=== PATIENT | male | born 1990 | race Caucasian/White ===

== ENCOUNTER 2017-05-05 23:54 | Emergency (ER) | payer OTHER ==
[~2017-05-05] VITALS: Ht 172.7 cm; Wt 75.9 kg
[2017-05-06] VITALS: Ht 172.7 cm; Wt 75.9 kg
[2017-05-06 00:20] VITALS: O2SAT 99
--- NOTE | 2017-05-06 00:27 | EMERGENCY ROOM VISIT NOTE ---
History Report prepared by Hayden: Melanie Ingram Under the Supervision of: Dr. Alcides Monson D.O. First contact with patient: 00:05 Chief Complaint: CARDIAC ASSESSMENT Stated Complaint: LEFT SIDE NUMB,NAUSEA,DIZZY History of Present Illness The patient is a 27 year old male who presents to the Emergency Room with complaints of persistent left hand and leg numbness starting this morning. The numbness worsens when he lies down. His numbness improved when he was walking around. He has never experienced these symptoms before. He reports some chest pain. He denies any headache or neck pain. He also checked his blood pressure several times today and found that it was fluctuating from high to low. His lowest measurement was 91/41 and the highest was 165/124. He is unsure if his blood pressure machine is measuring accurately. He notes that he has had trouble with his blood pressure fluctuating 10 years ago when he was sick with a virus. He denies being on any medications. He denies any history of surgeries. He has a history of smoking, but has cut down. He did smoke some cigarettes yesterday. He also admits to alcohol use yesterday. Source of History: patient Onset: this morning Position: hand (left), leg (left) Quality: numbness Timing: other (persistent) Modifying Factors (Worsening): other (lying down) Modifying Factors (Relieving): other (walking) Associated Symptoms: + chest pain, No headache, No neck pain Note: Pt reports blood pressure changes. Review of Systems See HPI for pertinent positives & negatives. A total of 10 systems reviewed and were otherwise negative. Past Medical & Surgical Medical Problems: (1) No Known Active Medical Problems Family History No pertinent family history stated. Social History Smoking Status: Light Tobacco Smoker Marital Status: single Occupation Status: [employer] student Current/Historical Medications No Active Prescriptions or Reported Meds Allergies Coded Allergies: No Known Allergies (Unverified , 05/06/17) Physical Exam Vital Signs Date Time Temp Pulse Resp B/P (MAP) Pulse Ox O2 Delivery O2 Flow Rate FiO2 05/06/17 04:31 37.0 56 16 125/58 98 05/06/17 04:30 68 16 114/71 96 Room Air 05/06/17 03:16 56 16 125/58 98 Room Air 05/06/17 02:04 75 18 113/57 96 Room Air 05/06/17 00:21 85 05/06/17 00:20 97 Room Air 05/06/17 00:20 99 Room Air 05/06/17 00:00 37.0 79 18 137/81 100 Room Air Physical Exam GENERAL: Patient is awake, alert, and in no acute distress. Patient is resting comfortably and showing no signs of anxiety EYES: The conjunctivae are clear. The pupils are round and reactive. EARS, NOSE, MOUTH AND THROAT: The nose is without any evidence of any deformity. Mucous membranes are moist tongue is midline NECK: The neck is nontender and supple. RESPIRATORY: Normal respiratory effort is noted there is no evidence of wheezing rhonchi or rales CARDIOVASCULAR: Regular rate and rhythm noted there no murmurs rubs or gallops normal S1 normal S2 GASTROINTESTINAL: The abdomen is soft. Bowel sounds are present in all quadrants. Abdomen is nontender MUSCULOSKELETAL/EXTREMITIES: There is no evidence of gross deformity full range of motion is noted in the hips and shoulders SKIN: There is no obvious evidence of any rash. There are no petechiae, pallor or cyanosis noted. NEUROLOGIC: Patient is awake alert and oriented x3 strength is symmetric patellar reflexes are 2+ bilaterally Medical Decision & Procedures ER Provider Diagnostic Interpretation: X-ray results as stated below per interpretation by me. Chest X-ray: Heart size normal, no definite infiltrate, no acute disease CT the head was obtained in the emergency department. The report was reviewed. Preliminary Findings Only See Final Report For Complete Findings CT HEAD: No acute intracranial hemorrhage, cortical infarct, mass, midline shift or extra -axial fluid collection Incidentals: Sinuses are clear. Calvarium is intact. No soft tissue abnormality Radiologist: Lior Mckeon M.D. Study ready at 00:39 and initial results transmitted at 00:55 MRI the brain was obtained in the emergency department. The report was reviewed. Preliminary Findings Only See Final Report For Complete Findings MRI HEAD : Comparison: CT head 05/06/2017, 12:38 AM No evidence of acute infarction or mass. Single focus of subcortical white matter T2/FLAIR hyperintensity right superior frontal gyrus (image 8, series 8). This is nonspecific and commonly incidental finding. Demyelinating disease considered unlikely given single focus which does not account for patient's symptoms. Otherwise, unremarkable examination. Radiologist: Luis A Germain MD Study ready at 03:17 and initial results transmitted at 04:16 Laboratory Results 05/06/17 00:10 Red Blood Count 5.42, Mean Corpuscular Volume 83.2, Mean Corpuscular Hemoglobin 28.8, Mean Corpuscular Hemoglobin Concent 34.6, Mean Platelet Volume 9.5, Neutrophils (%) (Auto) 49.0, Lymphocytes (%) (Auto) 40.3, Monocytes (%) (Auto) 9.7, Eosinophils (%) (Auto) 0.6, Basophils (%) (Auto) 0.2, Neutrophils # (Auto) 4.06, Lymphocytes # (Auto) 3.35, Monocytes # (Auto) 0.81, Eosinophils # (Auto) 0.05, Basophils # (Auto) 0.02 05/06/17 00:10 Test 05/06/17 00:10 05/06/17 01:20 White Blood Count 8.31 K/uL (4.8-10.8) Red Blood Count 5.42 M/uL (4.7-6.1) Hemoglobin 15.6 g/dL (14.0-18.0) Hematocrit 45.1 % (42-52) Mean Corpuscular Volume 83.2 fL (80-100) Mean Corpuscular Hemoglobin 28.8 pg (25-34) Mean Corpuscular Hemoglobin Concent 34.6 g/dl (32-36) Platelet Count 247 K/uL (130-400) Mean Platelet Volume 9.5 fL (7.4-10.4) Neutrophils (%) (Auto) 49.0 % Lymphocytes (%) (Auto) 40.3 % Monocytes (%) (Auto) 9.7 % Eosinophils (%) (Auto) 0.6 % Basophils (%) (Auto) 0.2 % Neutrophils # (Auto) 4.06 K/uL (1.4-6.5) Lymphocytes # (Auto) 3.35 K/uL (1.2-3.4) Monocytes # (Auto) 0.81 K/uL (0.11-0.59) Eosinophils # (Auto) 0.05 K/uL (0-0.5) Basophils # (Auto) 0.02 K/uL (0-0.2) RDW Standard Deviation 36.4 fL (36.4-46.3) RDW Coefficient of Variation 12.1 % (11.5-14.5) Immature Granulocyte % (Auto) 0.2 % Immature Granulocyte # (Auto) 0.02 K/uL (0.00-0.02) Prothrombin Time 11.4 SECONDS (9.0-12.0) Prothromb Time International Ratio 1.1 (0.9-1.1) Activated Partial Thromboplast Time 27.8 SECONDS (21.0-31.0) Partial Thromboplastin Ratio 1.1 Anion Gap 8.0 mmol/L (3-11) Est Creatinine Clear Calc Drug Dose 97.6 ml/min Estimated GFR () 106.1 Estimated GFR (Non- 91.5 BUN/Creatinine Ratio 12.4 (10-20) Calcium Level 9.5 mg/dl (8.5-10.1) Magnesium Level 2.1 mg/dl (1.8-2.4) Total Bilirubin 1.0 mg/dl (0.2-1) Direct Bilirubin 0.2 mg/dl (0-0.2) Aspartate Amino Transf (AST/SGOT) 19 U/L (15-37) Alanine Aminotransferase (ALT/SGPT) 33 U/L (12-78) Alkaline Phosphatase 95 U/L (45-117) Total Creatine Kinase 212 U/L (39-308) Creatine Kinase MB 1.1 ng/ml (0.5-3.6) Creatine Kinase MB Ratio 0.5 (0-3.0) Troponin I < 0.015 ng/ml (0-0.045) Total Protein 7.8 gm/dl (6.4-8.2) Albumin 4.6 gm/dl (3.4-5.0) Thyroid Stimulating Hormone (TSH) 1.500 uIu/ml (0.300-4.500) Urine Color YELLOW Urine Appearance CLEAR (CLEAR) Urine pH 5.5 (4.5-7.5) Urine Specific [place] 1.008 (1.000-1.030) Urine Protein NEG (NEG) Urine Glucose (UA) NEG (NEG) Urine Ketones NEG (NEG) Urine Occult Blood NEG (NEG) Urine Nitrite NEG (NEG) Urine Bilirubin NEG (NEG) Urine Urobilinogen NEG (NEG) Urine Leukocyte Esterase NEG (NEG) Laboratory results per my review. ECG Indication: chest pain Rate (beats per minute): 69 Rhythm: normal sinus Findings: no ectopy, other (no acute ST segment abnormality) Comparison ECG Date: no prior available ED Course 0013: The patient was evaluated in room B2. A complete history and physical examination were performed. 0146: I reevaluated the patient. He will go for MRI. 0422: Upon reevaluation, the patient is resting comfortably. I discussed the results and treatment plan with him. He verbalized agreement of the treatment plan. He was discharged home. Medical Decision Prior records/ancillary studies reviewed and summarized above. Nursing notes reviewed. The patient's history was concerning for numbness. Differential diagnosis: Etiologies such as metabolic, infection, hypo/hyperglycemia, electrolyte abnormalities, cardiac sources, intracerebral event, toxicologic, neurologic, as well as others were entertained. Medication Reconciliation: I attest that I have personally reviewed the patient' s current medications list. Blood pressure screening: Patient was found to have normal blood pressure on screening and does not require follow-up. The patient is a 27-year-old male who presented to the emergency department for left-sided numbness. The patient had no focal neurologic deficit and his numbness did not and certainly fit a neurologic pattern. The patient's CT did not show any acute disease so an MRI was obtained. I discussed the patient's laboratory radiographic studies with him. He was encouraged to follow-up with [facility] as soon as possible for further evaluation and discuss the possibility that he may need a referral to a neurologist for further evaluation. The patient was encouraged to return to the emergency department immediately if symptoms change worsen or the need arises. Impression Primary Impression: Left sided numbness Scribe Attestation The scribe's documentation has been prepared under my direction and personally reviewed by me in its entirety. I confirm that the note above accurately reflects all work, treatment, procedures, and medical decision making performed by me. Departure Information Dispostion Home / Self-Care Prescriptions No Active Prescriptions or Reported Meds Referrals [facility] Forms IMPORTANT VISIT INFORMATION Patient Instructions ED Paraesthesias, My [facility] Additional Instructions Call your family to schedule a follow-up appointment. Return to the emergency department immediately if symptoms change worsen or the need arises. Discussed the possibility that you may need a referral to a neurologist to further evaluate the cause your symptoms.
[2017-05-06 00:38] LABS: BASO % 0.2 %; BASO ABS # 0.02 K/uL (0-0.2); COMPLETE YES; EOS % 0.6 %; HEMATOCRIT 45.1 % (42-52); IG% 0.2 %; LYMPH % 40.3 %; LYMPH ABS # 3.35 K/uL (1.2-3.4); MEAN CELL VOLUME 83.2 fL (80-100); MEAN CORPUSCULAR HEMOGLOBIN 28.8 pg (25-34); MEAN CORPUSCULAR HGB CONC 34.6 g/dl (32-36); MEAN PLATELET VOLUME 9.5 fL (7.4-10.4); MONO % 9.7 %; PLATELET COUNT 247 K/uL (130-400); RED BLOOD COUNT 5.42 M/uL (4.7-6.1); WHITE BLOOD COUNT 8.31 K/uL (4.8-10.8)
[2017-05-06 00:44] LABS: INR 1.1 (0.9-1.1); PARTIAL THROMBOPLASTIN RATIO 1.1; PROTHROMBIN TIME (PATIENT) 11.4 SECONDS (9.0-12.0)
[2017-05-06 00:51] LABS: ALT/SGPT 33 U/L (12-78); AST/SGOT 19 U/L (15-37); BLOOD UREA NITROGEN 14 mg/dl (7-18); BUN/CREATININE RATIO 12.4 (10-20); CALCIUM 9.5 mg/dl (8.5-10.1); CARBON DIOXIDE 31 mmol/L (21-32); CHLORIDE 102 mmol/L (98-107); GLUCOSE 99 mg/dl (70-99); MAGNESIUM 2.1 mg/dl (1.8-2.4); POTASSIUM 3.2 mmol/L (3.5-5.1); SODIUM 141 mmol/L (136-145)
[2017-05-06 01:02] LABS: ALKALINE PHOSPHATASE 95 U/L (45-117); CKMB/CK RATIO 0.5 (0-3.0)
[2017-05-06 02:09] LABS: URINE APPEARANCE CLEAR (CLEAR); URINE BILIRUBIN NEG (NEG); URINE COLOR YELLOW; URINE NITRITE NEG (NEG); URINE PH 5.5 (4.5-7.5); URINE SPECIFIC GRAVITY 1.008 (1.000-1.030); UROBILINOGEN NEG (NEG)
[2017-05-06 02:10] LABS: MANUAL MICROSCOPIC REQUIRED? NO; REVIEW REQ? NO
[2017-05-06 04:31] VITALS: BP 125/58; PULSE 56; TEMP 37; O2SAT 98
--- NOTE | 2017-05-06 06:51 | DIAGNOSTIC IMAGING REPORT ---
HEAD WITHOUT CONTRAST (CT) HISTORY: Acute ALTERED MENTAL STATUS/WEAKNESS TECHNIQUE: Multiple axial CT images of the head were obtained without contrast. CT DOSE: 537.48 mGy.cm COMPARISON: Brain MRI of same day. FINDINGS: No acute intracranial hemorrhage, midline shift, mass, large territorial ischemia or abnormal extra-axial collection. The calvarium is intact. The paranasal sinuses, mastoid air cells, and middle ear cavities are clear. IMPRESSION: No acute intracranial abnormality. The above report was generated using voice recognition software. It may contain grammatical, syntax or spelling errors. Electronically signed by: Arian Damian M.D. 05/06/2017 6:50 AM Dictated Date/Time: 05/06/2017 6:48 AM
--- NOTE | 2017-05-06 07:09 | DIAGNOSTIC IMAGING REPORT ---
MRI OF THE BRAIN WITHOUT CONTRAST CLINICAL HISTORY: left sided numbness COMPARISON STUDY: Head CT dated 05/06/2017 FINDINGS: Sagittal T1, axial diffusion, proton density and T2 weighted axial, coronal FLAIR, and axial T1-weighted images were acquired. No intra or extra-axial mass lesions are visualized Axial diffusion-weighted images reveal no evidence of acute or subacute infarction. There is no evidence of ventricular dilatation. A focus of increased FLAIR signal within the right subcortical white matter as described pulmonary report, likely represents partial volume averaging. There are no abnormal flow voids. IMPRESSION: Essentially normal MRI of the brain. An equivocal focus of increased FLAIR signal within the subcortical right frontal white matter, likely represents partial volume averaging. Electronically signed by: Dio Verma M.D. 05/06/2017 7:08 AM Dictated Date/Time: 05/06/2017 7:04 AM
--- NOTE | 2017-05-06 07:23 | DIAGNOSTIC IMAGING REPORT ---
CHEST ONE VIEW PORTABLE CLINICAL HISTORY: 27 years-old Male presenting with EVALUATE ALTERED MENTAL STATUS/WEAKNESS. TECHNIQUE: Portable upright AP view of the chest was obtained. COMPARISON: None. FINDINGS: Cardiomediastinal silhouette normal. Lungs and pleural spaces clear. Osseous structures and upper abdomen normal. IMPRESSION: 1. No acute cardiopulmonary disease. Electronically signed by: Babatunde Moncada M.D. 05/06/2017 7:21 AM Dictated Date/Time: 05/06/2017 7:21 AM
== END 2017-05-06 04:32 | disposition home or self-care (01) ==
LOC: C.EDB 23:57
DX: R20.2 Paresthesia of skin (principal); F17.200 Nicotine dependence, unspecified, uncomplicated

== ENCOUNTER → 2017-09-20 | Day surgery (SDC) | payer OTHER ==
[~2017-09-20] VITALS: Ht 172.7 cm; Wt 72.7 kg
[~2017-09-20] MED LIST: LIDOCAINE HCL 2% 2 ML VIAL (20MG/ML) ONE; MIDAZOLAM HCL 1 MG/ML 2ML VIAL ONE; ONDANSETRON INJ 2 MG/ML 2 ML VIAL ONE; PROPOFOL IV EMULSION 10 MG/ML 20 ML VIAL IV ONE; PRT/20 PO; SODIUM CHLORIDE 0.9% 500ML 500 ML IV ONE
[2017-09-20 11:57] VITALS: Ht 172.7 cm; Wt 72.7 kg
--- NOTE | 2017-09-20 13:01 | Endo History and Physical ---
History & Physical Date of Service: Sep 20, 2017. Chief Complaint: dysphagia Referring Physician: Brayan Morales PA-C History of Present Illness 27 yo male who presents for EGD secondary to dysphagia. Past Surgical History Hx Cardiac Surgery: No Hx Internal Defibrillator: No Hx Pacemaker: No Hx Abdominal Surgery: No Hx of Implantable Prosthesis: No Hx Cancer Surgery: No Hx Thoracic Surgery: No Hx Orthopedic: No Hx Urinary Tract Surgery: No Family History None Social History Smoking Status: Former Smoker Hx Substance Use: No Hx Alcohol Use: Yes (SOCIALLY) Allergies Coded Allergies: No Known Allergies (Verified , 09/20/17) Current Medications Reported Home Medications Medications Dose Route/Sig Max Daily Dose Days Date Category Protonix (Pantoprazole Sodium) 20 Mg Tab 20 Mg PO DAILY 09/20/17 Reported Vital Signs Weight (Kilograms): 72.73 Height (Feet): 5 Height (Inches): 8 Date Time Temp Pulse Resp B/P (MAP) Pulse Ox O2 Delivery O2 Flow Rate FiO2 09/20/17 12:10 36.7 64 16 111/61 (78) 98 Room Air Physical Exam General Appearance: WD/WN, no apparent distress Respiratory/Chest: Auscultation: breath sounds normal Cardiovascular: Heart Auscultation: RRR Abdomen: Bowel Sounds: normal Inspection & Palpation: soft, non-distended, no tenderness, guarding & rebound Assessment and Plan Assessment: 27 yo male who presents for EGD secondary to dysphagia. Plan: Proceed with EGD.
--- NOTE | 2017-09-20 13:32 | Discharge Instructions ---
Endoscopy Patient Instructions Date / Procedure(s) Performed Sep 20, 2017. EGD Allergy Information Coded Allergies: No Known Allergies (Verified , 09/20/17) Discharge Date / Findings Sep 20, 2017. Midesophageal biopsies Medication Instructions OK to resume all medications today as prescribed Reported Home Medications Medications Dose Route/Sig Max Daily Dose Days Date Category Protonix (Pantoprazole Sodium) 20 Mg Tab 20 Mg PO DAILY 09/20/17 Reported Provider Instructions Activity Restrictions - No exercising or heavy lifting for 24 hours. - Do not drink alcohol the day of the procedure. - Do not drive a car or operate machinery until the day after the procedure. - Do not make any important decisions or sign important papers in 24 hours after the procedure. Following Day: - Return to full activity which may include returning to work/school. Diet Start your diet with liquids and light foods (jello, soup, juice, toast). Then eat your usual diet if not nauseated. Treatment For Common After Affects For mild abdominal pain, bloating, or excessive gas: - Rest - Eat lightly - Lie on right side Follow-Up Information Follow-up with Brayan Morales PA-C as scheduled Anesthesia Information What You Should Know You have had a procedure that required some medicine to reduce anxiety and discomfort. This treatment is called moderate sedation. After receiving the treatment, you may be sleepy, but you will be able to breathe on your own. The effects of the treatment may last for several hours. Follow these instructions along with Activity/Diet recommendations noted above: * Do NOT do anything where dizziness or clumsiness would be dangerous. * Rest quietly at home today, then you can be up and about tomorrow. * Have a responsible person stay with you the rest of today. * You may have had an I.V. today. If so, you may take the dressing off later today. Recommendations Call your doctor if: * Trouble breathing * Continuous vomiting for more than 24 hours * Temperature above 101 degrees * Severe abdominal pain or bloating * Pain not relieved by pain medicine ordered * There is increased drainage or redness from any incision * A large amount of rectal bleeding greater than 2-3 tablespoons. (If you had a polyp/s removed or have hemorrhoids, a small amount of blood - from the rectum is to be expected.) * You have any unanswered questions or concerns. IN THE EVENT OF A SERIOUS EMERGENCY, GO TO THE NEAREST EMERGENCY ROOM Your discharge instructions were prepared by provider Fransico Hickey. Patient Instructions Signature Page Priscilla Hearnletitia Patient (or Guardian) Signature/Date: I have read and understand the instructions given to me by my caregivers. Caregiver/RN/Doctor Signature/Date: The above-named patient and/or guardian has received patient instructions on this date. + Original Patient Signature Page (only) stays with chart. Please make copy for patient.
--- NOTE | 2017-09-20 13:38 | GI REPORT ---
Procedure Date: 09/20/2017 12:56 PM Procedure: Upper GI endoscopy Indications: Dysphagia Medicines: Monitored Anesthesia Care Complications: No immediate complications. Estimated Blood Loss: Estimated blood loss: none. Procedure: Pre-Anesthesia Assessment: - Prior to the procedure, a History and Physical was performed, and patient medications and allergies were reviewed. The patient's tolerance of previous anesthesia was also reviewed. The risks and benefits of the procedure and the sedation options and risks were discussed with the patient. All questions were answered, and informed consent was obtained. Prior Anticoagulants: The patient has taken no previous anticoagulant or antiplatelet agents. ASA Grade Assessment: II - A patient with mild systemic disease. After reviewing the risks and benefits, the patient was deemed in satisfactory condition to undergo the procedure. After obtaining informed consent, the endoscope was passed under direct vision. Throughout the procedure, the patient's blood pressure, pulse, and oxygen saturations were monitored continuously. The scope was introduced through the mouth, and advanced to the second part of duodenum. The upper GI endoscopy was accomplished without difficulty. The patient tolerated the procedure well. Findings: The examined esophagus was normal. Multiple biopsies were obtained in the middle third of the esophagus with cold forceps for histology. The stomach was normal. The examined duodenum was normal. Impression: - Normal esophagus. - Normal stomach. - Normal examined duodenum. - Multiple biopsies were obtained in the middle third of the esophagus. Recommendation: - Resume previous diet. - Continue present medications. - Await pathology results. - Return to GI office as previously scheduled. Fransico Hickey DO 09/20/2017 1:37:56 PM This report has been signed electronically. Note Initiated On: 09/20/2017 12:56 PM I attest to the content of the Intraoperative Record and orders documented therein, exceptions below
[2017-09-20 14:08] VITALS: BP 95/69; PULSE 66; O2SAT 97
--- NOTE | 2017-09-20 14:14 | Anesthesiology Progress Note ---
Anesthesia Post Op Note Date & Time Sep 20, 2017 at 14:14 Vital Signs Pain Intensity: 0 Vital Signs Past 12 Hours Date Time Temp Pulse Resp B/P (MAP) Pulse Ox O2 Delivery O2 Flow Rate FiO2 09/20/17 14:08 66 16 95/69 (78) 97 Room Air 09/20/17 13:53 70 16 102/69 (80) 96 Room Air 09/20/17 13:32 85 16 114/62 (79) 97 Room Air 09/20/17 12:10 36.7 64 16 111/61 (78) 98 Room Air Notes Mental Status: alert / awake / arousable, participated in evaluation Pt Amnestic to Procedure: Yes Nausea / Vomiting: adequately controlled Pain: adequately controlled Airway Patency, RR, SpO2: stable & adequate BP & HR: stable & adequate Hydration State: stable & adequate Anesthetic Complications: no major complications apparent
== END | disposition home or self-care (01) ==
LOC: C.GI 11:43
PROVIDERS: ATTEND Internal Medicine
DX: R13.10 Dysphagia, unspecified (principal); Z87.891 Personal history of nicotine dependence; Z90.89 Acquired absence of other organs